=== PATIENT | male | born 1955 | race Caucasian/White ===

== ENCOUNTER → 2019-04-23 | Outpatient (CLI) | payer OTHER ==
[2019-04-23 14:10] LABS: Creatinine, Urine Random 42.7 mg/dL (27.00-270.00); Microalb/Creat Ratio UR, Rand 325.527 mg/g (0.000-30.000)
== END | disposition home or self-care (01) ==
LOC: LAB SHORT 12:00 → LAB SRC 12:00 → LAB FUT 04-22 10:30
PROVIDERS: Family Medicine
DX: Z76.89 Persons encountering health services in other specified circumstances (principal); E11.9 Type 2 diabetes mellitus without complications; E78.5 Hyperlipidemia, unspecified; I10 Essential (primary) hypertension
CPT/HCPCS: 82043; 82570

== ENCOUNTER → 2019-05-06 | Outpatient (CLI) | payer OTHER ==
[2019-05-07 13:49] LABS: Stool Occult Bld Immuno 1 Negative (NEGATIVE)
== END | disposition home or self-care (01) ==
LOC: LAB 15:06 → LAB SHORT 15:06
PROVIDERS: Family Medicine
DX: Z12.11 Encounter for screening for malignant neoplasm of colon (principal)
CPT/HCPCS: G0328

== ENCOUNTER 2021-05-31 15:17 | Observation (INO) | payer OTHER ==
[~2021-05-31] VITALS: Ht 180.3 cm; Wt 98.0 kg
[~2021-05-31 15:17] MED LIST: ASPI81CH PO; ATOR40TA PO; Amitriptyline H50 MG PO; Amlodipine Besyl5 MG PO; Aspir 8181 MG PO; CLOP75 PO; DULO60 PO; EUTHYROX50 MC1 PO; FURO20 PO; GABA800 PO; GLIPIZIDE ER5 MG PO; IBUP200 PO; IBUP800 PO; LAMO100 PO; LISI20 PO; METF500C PO; MIRT15 PO; NOVOLOG MI100 UNIT/2 SQ; OMEP20ER PO; PANT20 PO; TRULICITY0.75 MG/01 SQ
[2021-05-31 15:49] LABS: BASOPHILS ABSOLUTE AUTO 0.06 K/mm3 (0.00-0.23); BASOPHILS PERCENT AUTO 1 % (0-2); EOSINOPHILS ABSOLUTE AUTO 0.26 K/mm3 (0.00-0.68); EOSINOPHILS PERCENT AUTO 3 % (0-6); Hematocrit 34.4 % (37.0-53.0); Hemoglobin 11.1 g/dL (13.5-17.5); IMMATURE GRAN ABSOLUTE AUTO 0.02 K/mm3 (0.00-0.10); IMMATURE GRAN PERCENT AUTO 0 % (0-1); LYMPHOCYTES ABSOLUTE AUTO 3.15 K/mm3 (0.84-5.20); LYMPHOCYTES PERCENT AUTO 35 % (21-46); MONOCYTES ABSOLUTE AUTO 0.57 K/mm3 (0.16-1.47); MONOCYTES PERCENT AUTO 6 % (4-13); Mean Corpuscular HGB 29.5 pg (26.0-34.0); Mean Corpuscular HGB Conc 32.3 g/dL (31.5-36.5); Mean Corpuscular Volume 92 fL (80-100); Mean Platelet Volume 11.1 fL (9.1-12.4); NEUTROPHILS ABSOLUTE AUTO 4.86 K/mm3 (1.96-9.15); NEUTROPHILS PERCENT AUTO 55 % (41-73); Platelet Count 229 K/mm3 (150-400); RDW Coefficient Variation 14.6 % (11.7-14.2); RDW Standard Deviation 49.1 fL (35.1-46.3); Red Blood Cell Count 3.76 M/mm3 (4.30-5.90); White Blood Cell Count 8.92 K/mm3 (4.00-11.30)
[2021-05-31 16:06] LABS: Ethanol (Alcohol), Blood, Med <3 mg/dL
[2021-05-31 16:32] LABS: Alanine Aminotransfer (ALT/SGP 33 U/L (12-78); Albumin, Blood 3.6 g/dL (3.4-5.0); Albumin/Globulin Ratio 1.2 (0.8-1.8); Alk Phos 41 U/L (50-136); Anion Gap 4 mmol/L (6-16); Aspartate Aminotrans (AST/SGOT 15 U/L (12-37); Bilirubin, Total 0.3 mg/dL (0.1-1.0); Blood Urea Nitrogen 26 mg/dL (8-24); Bun/Creatinine Ratio 12.9 (12.0-20.0); CO2, Blood 24 mmol/L (21-32); Calcium, Blood 8.4 mg/dL (8.5-10.1); Chloride, Blood 111 mmol/L (98-108); Creatinine, Blood 2.01 mg/dL (0.60-1.20); Glomerular Filtration Rate 33 (60-); Glucose, Blood 111 mg/dL (70-99); Potassium, Blood 6.4 mmol/L (3.5-5.5); Sodium, Blood 139 mmol/L (136-145); Total Protein, Blood 6.6 g/dL (6.4-8.2)
[2021-06-01 01:08] LABS: Bun/Creatinine Ratio 15.3 (12.0-20.0); Calcium, Blood 8.1 mg/dL (8.5-10.1); Creatinine, Blood 1.9 mg/dL (0.60-1.20); Potassium, Blood 4.9 mmol/L (3.5-5.5)
[2021-06-01 02:07] LABS: U Amphetamine Screen Not Detected; U Barbituate Screen Not Detected; U Benzodiazapine Screen Not Detected; U Buprenorphine Screen Not Detected; U Cannabinoids Screen DETECTED; U Cocaine Screen Not Detected; U Methadone Screen Not Detected; U Methamphetamine Screen Not Detected; U Opiates Screen Not Detected; U Oxycodone Screen Not Detected; U Phencyclidine Screen Not Detected; U Propoxyphene Screen Not Detected
--- NOTE | 2021-06-01 04:35 | NUR ---
SHIFT SUMMARY: PATIENT ADMITTED FROM ED, A&OX4, TELE =NSR, NO COMPLAINTS OF PAIN, SAT > 92%ON RA. MONITIORING LABS. PATIENT REMOVED IV, NEW IV PLACED WITHOUT INCIDENT NS @75. WCTM.
[2021-06-01 04:51] LABS: BASOPHILS ABSOLUTE AUTO 0.04 K/mm3 (0.00-0.23); BASOPHILS PERCENT AUTO 0 % (0-2); EOSINOPHILS ABSOLUTE AUTO 0.15 K/mm3 (0.00-0.68); EOSINOPHILS PERCENT AUTO 2 % (0-6); Hematocrit 31.9 % (37.0-53.0); Hemoglobin 10.4 g/dL (13.5-17.5); IMMATURE GRAN ABSOLUTE AUTO 0.01 K/mm3 (0.00-0.10); IMMATURE GRAN PERCENT AUTO 0 % (0-1); LYMPHOCYTES PERCENT AUTO 28 % (21-46); MONOCYTES PERCENT AUTO 7 % (4-13); Mean Corpuscular HGB 29.7 pg (26.0-34.0); Mean Corpuscular HGB Conc 32.6 g/dL (31.5-36.5); Mean Corpuscular Volume 91 fL (80-100); Mean Platelet Volume 10.9 fL (9.1-12.4); NEUTROPHILS ABSOLUTE AUTO 5.89 K/mm3 (1.96-9.15); NEUTROPHILS PERCENT AUTO 63 % (41-73); Platelet Count 195 K/mm3 (150-400); RDW Coefficient Variation 14.6 % (11.7-14.2); RDW Standard Deviation 49.3 fL (35.1-46.3); White Blood Cell Count 9.29 K/mm3 (4.00-11.30)
[2021-06-01 05:21] LABS: Bun/Creatinine Ratio 14.7 (12.0-20.0); Calcium, Blood 8.4 mg/dL (8.5-10.1); Creatinine, Blood 1.84 mg/dL (0.60-1.20); Thyroid Stimulating Hormone 1.43 uIU/mL (0.360-4.800); Thyroxine (T4) 5.1 ug/dL (4.5-12.1)
[2021-06-01 15:26] LABS: Bun/Creatinine Ratio 14.4 (12.0-20.0); Calcium, Blood 8.5 mg/dL (8.5-10.1); Creatinine, Blood 1.53 mg/dL (0.60-1.20); Potassium, Blood 4.9 mmol/L (3.5-5.5)
--- NOTE | 2021-06-01 15:27 | NUR ---
Visited pt to educate on CKD diet recommendations. Pt reported that he has heard renal diet recommendations in the past, however he did not remember the specifics. Pt reported that he does not typically add salt to foods. Upon further prompting he identified TV dinners as a large source of sodium in his diet. Encouraged pt to choose reduced sodium options if selecting TV dinners, but warned that these are typically still high in sodium. Educated on recommended protein serving size. Discussed foods high and low in potassium. Pt identified bananas as a daily source of potassium in his diet. Informed pt that he can still enjoy higher potassium foods if he eats smaller portions (such as only eating half a banana). Reviewed sources of Phos and mentioned that pt may need to limit it if his lab values are high in the future. Pt had a family member in the room during the education who also listened and asked questions. Pt reported that this family member works at a grocery store and helps purchase his food. Both were receptive to education and began discussing ways to implement these changes. Good compliance expected.
[2021-06-01] MEDS ORDERED: BASAGLAR K100 UNIT/3 SC (16:39)
[2021-06-01] MEDS ORDERED: NOVOLOG FL100 UNIT/3 SC (16:55)
--- NOTE | 2021-06-01 17:48 | NUR ---
PATIENT DISCHARGED TO HOME ACCOMPANIED BY HIS SON. IV SALINE LOCK REMOVED WITHOUT INCIDENT. VERBALIZED UNDERSTANDING OF D/C INSTRUCTIONS, HAS CORRECT MEDICATION LIST. OFF UNIT AT 1747 VIA W/C. NO BELONGINGS LEFT BEHIND IN ROOM.
== END 2021-06-01 17:45 | disposition home or self-care (01) ==
LOC: ER 15:17 → MEDS 15:31
PROVIDERS: Emergency Medicine; Family Medicine; ADMIT Internal Medicine
DX: E87.5 Hyperkalemia (principal); G92.8 Other toxic encephalopathy; I45.10 Unspecified right bundle-branch block; N17.9 Acute kidney failure, unspecified; E11.9 Type 2 diabetes mellitus without complications; I25.10 Atherosclerotic heart disease of native coronary artery without angina pectoris; E03.9 Hypothyroidism, unspecified; E78.5 Hyperlipidemia, unspecified; K21.9 Gastro-esophageal reflux disease without esophagitis; I95.9 Hypotension, unspecified; I12.9 Hypertensive chronic kidney disease with stage 1 through stage 4 chronic kidney disease, or unspecified chronic kidney disease; E11.22 Type 2 diabetes mellitus with diabetic chronic kidney disease; N18.9 Chronic kidney disease, unspecified; Z79.4 Long term (current) use of insulin; Z87.891 Personal history of nicotine dependence
CPT/HCPCS: 36415; 80048; 80053; 82947; 84145; 84436; 84443; 85025; 93005; 93010; 96374; 99285-25; A9270; G0378; G0480; J1815; J7030; J7060

== ENCOUNTER → 2024-03-14 | Outpatient (CLI) | payer OTHER ==
[~2024-03-14] MED LIST changes: +BASAGLAR K100 UNIT/3 SC; +NOVOLOG FL100 UNIT/3 SC
[2024-03-18 08:07] LABS: Stool Occult Bld Immuno 1 Negative (NEGATIVE)
== END ==
LOC: LAB SHORT 12:00 → LAB 12:00
PROVIDERS: Family Medicine
DX: Z12.11 Encounter for screening for malignant neoplasm of colon (principal)
CPT/HCPCS: G0328